=== PATIENT | female | born 1970 | race Caucasian/White ===

== ENCOUNTER → 2018-09-12 | Outpatient (CLI) | payer BC ==
--- NOTE | 2018-09-12 13:39 | MM ---
Reason for exam: screening (asymptomatic). Last mammogram was performed 2 years and 4 months ago. History: Patient history of other cancer. Took hormonal contraceptives for 27 years beginning at age 19. Physical Findings: A clinical breast exam by your physician is recommended on an annual basis and results should be correlated with mammographic findings. MG Screening Mammo w CAD Bilateral CC and MLO view(s) were taken. Prior study comparison: May 09, 2016, mammogram. April 08, 2014, mammogram. The breast tissue is extremely dense which could obscure a lesion on mammography. There are benign appearing round calcifications bilaterally. New indistinct group of calcifications right anterior central aspect. Focal asymmetry right MLO view posterior central aspect. ASSESSMENT: Incomplete: need additional imaging evaluation, BI-RAD 0 RECOMMENDATION: Special view mammogram of the right breast. If lesion persists on supplemental views, image directed ultrasound is recommended. [facility] will attempt to contact patient to return for supplemental views and ultrasound if indicated.
== END | disposition home or self-care (01) ==
LOC: RADMAMWWP 08:22
PROVIDERS: ATTEND Obstetrics & Gynecology
DX: Z12.31 Encounter for screening mammogram for malignant neoplasm of breast (principal)
CPT/HCPCS: 77067

== ENCOUNTER → 2018-09-26 | Outpatient (CLI) | payer BC ==
--- NOTE | 2018-09-26 12:19 | MM ---
Reason for exam: additional evaluation requested from abnormal screening. Last mammogram was performed less than 1 month ago. History: Patient has history of other cancer at age 38. Took hormonal contraceptives for 27 years beginning at age 19. Physical Findings: Nurse did not find any significant physical abnormalities on exam. MG 3D Work Up W/Cad RT LM, spot compression MLO, CC with magnification, and LM with magnification view(s) were taken of the right breast. Prior study comparison: September 12, 2018, bilateral MG screening mammo w CAD. May 09, 2016, mammogram. There is a 4mm group of calcifications in the right retroareolar lower inner quadrant that is new from 2016. These are heterogenous and indeterminate. Biopsy recommended. The previously seen right posterior depth asymmetry resolves on additonal views. These results were verbally communicated with the patient and result sheet given to the patient on 09/26/18. ASSESSMENT: Suspicious, BI-RAD 4 RECOMMENDATION: Stereotactic core biopsy of the right breast. Called Dr. Burns with mammographic findings. Patient request to see a surgeon at [facility]. PRELIMINARY REPORT CALLED AND FAXED TO DR. BURNS ON 09/26/18.
== END | disposition home or self-care (01) ==
LOC: RADMAMWWP 10:11
PROVIDERS: ATTEND Obstetrics & Gynecology
DX: R92.8 Other abnormal and inconclusive findings on diagnostic imaging of breast (principal)
CPT/HCPCS: 77061; 77065

== ENCOUNTER 2023-03-12 10:48 | Day surgery (SDC) | payer BC, OTHER ==
[2023-03-05 10:58] VITALS: BMI 19.0
[~2023-03-12 10:48] MED LIST: LACTATED RINGERS 1,000 ML IV SCH
[2023-03-12 11:06] VITALS: TEMP 96.6
[2023-03-12] MEDS ORDERED: PROPOFOL 10 MG/ML 20 ML VIAL IV ONE (11:14)
--- NOTE | 2023-03-12 11:19 | P.GSHP ---
History of Present Illness H&P Date: 03/12/23 Chief Complaint: Colon cancer screening 52-year-old female here for colonoscopy. She has not had 1 previously. No bowel complaints. No family history of colon cancer. Past Medical History Past Medical History: Cancer, Thyroid Disorder Additional Past Medical History / Comment(s): thyroid cancer History of Any Multi-Drug Resistant Organisms: None Reported Additional Past Surgical History / Comment(s): thyroidectomy 2009 Past Anesthesia/Blood Transfusion Reactions: No Reported Reaction Additional Past Anesthesia/Blood Transfusion Reaction / Comment(s): no blood transfusion Smoking Status: Former smoker Medications and Allergies Home Medications Medication Instructions Recorded Confirmed Type Cholecalciferol (Vitamin D3) 2,000 unit PO DAILY 03/05/23 03/05/23 History [Vitamin D3 (50 Mcg = 2000 Iu) Chew Tab] Levothyroxine Sodium [Synthroid] 112 mcg PO DAILY 03/05/23 03/05/23 History norethindrone ac-eth estradioL 1 each PO DAILY 03/05/23 03/05/23 History [Aurovela 21 1.5-30 Tablet] Allergies Allergy/AdvReac Type Severity Reaction Status Date / Time codeine Allergy Rash/Hives Verified 03/12/23 11:02 Surgical - Exam Vital Signs Temp Pulse Resp BP Pulse Ox 96.6 F L 93 16 145/87 100 03/12/23 11:04 03/12/23 11:04 03/12/23 11:04 03/12/23 11:04 03/12/23 11:04 Physical exam: General: Well-developed, well-nourished HEENT: Normocephalic, sclerae nonicteric Abdomen: Nontender, nondistended Extremities: No edema Neuro: Alert and oriented Assessment and Plan (1) Colon cancer screening Narrative/Plan: Will proceed with colonoscopy at this time. Current Visit: Yes Status: Acute Code(s): Z12.11 - ENCOUNTER FOR SCREENING FOR MALIGNANT NEOPLASM OF COLON SNOMED Code(s): 775356456
--- NOTE | 2023-03-12 11:40 | P.PCN ---
Date of Procedure: 03/12/23 Procedure(s) Performed: PREOPERATIVE DIAGNOSIS: Colon cancer screening POSTOPERATIVE DIAGNOSIS: Normal exam PROCEDURE: Colonoscopy ANESTHESIA: MAC SURGEON: Darrell Butler M.D. SPECIMENS: None ENDOSCOPIC PROCEDURE: The patient was placed on the endoscopy table in the left decubitus position. The Olympus colonoscope was inserted into the anus and passed under direct visualization to the base of the cecum. The appendiceal orifice was visualized. From that point the scope was slowly withdrawn inspecti ng all surfaces carefully. There were no neoplastic inflammatory or polypoid lesions throughout the cecum, ascending, transverse, descending, sigmoid and rectum. There was no visible diverticulosis noted. The patient's colon was very tortuous. Digital rectal examination was normal. The patient was taken to the recovery room in stable condition per anesthesia guidelines. RECOMMENDATIONS: Resume diet. Recommend follow-up screening colon evaluation be via cologuard given the significant limitations of exam given the tortuosity
[2023-03-12 11:59] VITALS: BP 147/88; PULSE 72; RESP 16
== END 2023-03-12 12:17 | disposition home or self-care (01) ==
LOC: ORWHC2ENDO 10:48
PROVIDERS: ATTEND Surgery
DX: Z12.11 Encounter for screening for malignant neoplasm of colon (principal); K56.2 Volvulus; E03.9 Hypothyroidism, unspecified; Z85.850 Personal history of malignant neoplasm of thyroid; Z90.89 Acquired absence of other organs; Z98.890 Other specified postprocedural states; Z87.891 Personal history of nicotine dependence; Z79.899 Other long term (current) drug therapy; Z79.890 Hormone replacement therapy; Z88.5 Allergy status to narcotic agent
CPT/HCPCS: 81025; 45378; J2704

== ENCOUNTER → 2023-03-14 | Outpatient (CLI) | payer BC, OTHER ==
--- NOTE | 2023-03-18 07:56 | MM ---
Reason for Exam: Screening (asymptomatic). Last mammogram was performed 4 year(s) and 6 month(s) ago. Patient History: Menarche at age 15. First Full-Term at age 23. Hormonal Contraceptives, starting at age 19 for 27 years. Risk Values: Lexi 5 year model risk: 0.9%. NCI Lifetime model risk: 8.0%. Prior Study Comparison: 04/08/2014 Screening Mammogram, Unknown. 05/09/2016 Screening Mammogram, Unknown. 09/12/2018 Bilateral Screening Mammogram, [facility]. 09/26/2018 Right Diagnostic Mammogram, [facility]. Tissue Density: The breast tissue is heterogeneously dense. This may lower the sensitivity of mammography. Findings: Analyzed By CAD. Left breast CC nodular densities at 5.1 cm the nipple middle depth slightly lateral. Right: There is no suspicious group of microcalcifications or new suspicious mass in either breast. Overall Assessment: Incomplete: need additional imaging evaluation, BI-RAD 0 Management: Diagnostic Mammogram of the left breast. Diagnostic Breast Ultrasound of the left breast. [facility] will attempt to contact patient to return for supplemental views and ultrasound if indicated. Patient should continue monthly self-breast exams. A clinical breast exam by your physician is recommended on an annual basis. This exam should not preclude additional follow-up of suspicious palpable abnormalities. Note on Lexi scores and lifetime risk: 1. A Lexi score greater than 3% is considered moderate risk. If this is the case, consider specialist referral to assess eligibility for a risk reducing agent. 2. If overall lifetime risk for the development of breast cancer is 20% or higher, the patient may qualify for future screening with alternating mammogram and breast MRI. Electronically signed and approved by: Alfonso Jaime DO
== END | disposition home or self-care (01) ==
LOC: RADMAMWWP 16:40
PROVIDERS: ATTEND Obstetrics & Gynecology
DX: Z12.31 Encounter for screening mammogram for malignant neoplasm of breast (principal)
CPT/HCPCS: 77063; 77067

== ENCOUNTER → 2023-03-29 | Outpatient (CLI) | payer BC, OTHER ==
--- NOTE | 2023-03-29 13:25 | MM ---
Reason for Exam: Additional evaluation requested from abnormal screening. Last screening mammogram was performed less than 1 month ago. Patient History: Menarche at age 15. First Full-Term at age 23. Hormonal Contraceptives, starting at age 19 for 27 years. Risk Values: Lexi 5 year model risk: 0.9%. NCI Lifetime model risk: 8.0%. Prior Study Comparison: 09/12/2018 Bilateral Screening Mammogram, [facility]. 09/26/2018 Right Diagnostic Mammogram, [facility]. 03/14/2023 Bilateral MG 3D screening mammo w/cad, [facility]. Tissue Density: Left: The breast tissue is heterogeneously dense. This may lower the sensitivity of mammography. Findings: Analyzed By CAD. Nodular densities upper outer left breast 5 cm from the nipple persist. Ultrasound is recommended. Overall Assessment: Incomplete: need additional imaging evaluation, BI-RAD 0 Management: Diagnostic Breast Ultrasound of the left breast. . Results were given to the patient verbally at the time of exam. Patient should continue monthly self-breast exams. A clinical breast exam by your physician is recommended on an annual basis. This exam should not preclude additional follow-up of suspicious palpable abnormalities. Note on Lexi scores and lifetime risk: 1. A Lexi score greater than 3% is considered moderate risk. If this is the case, consider specialist referral to assess eligibility for a risk reducing agent. 2. If overall lifetime risk for the development of breast cancer is 20% or higher, the patient may qualify for future screening with alternating mammogram and breast MRI. Electronically signed and approved by: Jonathan Nevarez M.D. Radiologis
--- NOTE | 2023-03-29 14:34 | USB ---
Reason for Exam: Additional evaluation requested from abnormal screening. Patient History: Menarche at age 15. First Full-Term at age 23. Hormonal Contraceptives, starting at age 19 for 27 years. Risk Values: Lexi 5 year model risk: 0.9%. NCI Lifetime model risk: 8.0%. Technique: Method: Targeted. Prior Study Comparison: 09/12/2018 Bilateral Screening Mammogram, [facility]. 09/26/2018 Right Diagnostic Mammogram, [facility]. 03/14/2023 Bilateral MG 3D screening mammo w/cad, [facility]. Findings: The upper outer quadrant of the left breast, the axilla of the left breast and the retroareolar of the left breast were scanned. Simple cyst at the left 12:00 position measuring 1.6 x 0.9 cm 1 cm from the nipple. Left 1:00 position demonstrates simple cyst measuring 6 x 3 mm. Left 1:00 5 cm from the nipple demonstrates a 6 x 6 x 3 mm cyst. No solid masses seen. Left axillary lymph node demonstrates thickened cortex 0.35 cm. The lymph node measures 1.3 x 0.5 cm. This could be reactive in nature and short-term follow-up is recommended in 3 months. Overall Assessment: Probably benign, BI-RAD 3 Management: Diagnostic Breast Ultrasound of the left breast in 3 months. A clinical breast exam by your physician is recommended on an annual basis and results should be correlated with mammographic findings. This exam should not preclude additional follow-up of suspicious palpable abnormalities. Results were given to the patient verbally at the time of exam. Electronically signed and approved by: Jonathan Nevarez M.D. Radiologis
== END | disposition home or self-care (01) ==
LOC: RADMAMWWP 12:57
PROVIDERS: ATTEND Obstetrics & Gynecology
DX: R92.8 Other abnormal and inconclusive findings on diagnostic imaging of breast (principal)
CPT/HCPCS: 77061; 77065

== ENCOUNTER → 2023-08-20 | Outpatient (CLI) | payer OTHER ==
[2023-08-20 19:03] LABS: Blood Urea Nitrogen 13.4 mg/dL (9.0-27.0); Calcium 9.2 mg/dL (8.7-10.3); Carbon Dioxide 22.2 mmol/L (21.6-31.8); Chloride 102 mmol/L (96-109); Glucose 90 mg/dL (70-110); Potassium 4.2 mmol/L (3.5-5.5); Sodium 138 mmol/L (135-145)
== END | disposition home or self-care (01) ==
LOC: LABWHC1 13:58
PROVIDERS: ATTEND Internal Medicine Endocrinology, Diabetes & Metabolism
DX: C73 Malignant neoplasm of thyroid gland (principal); E89.0 Postprocedural hypothyroidism; E55.9 Vitamin D deficiency, unspecified
CPT/HCPCS: 36415; 80048; 82306; 84439; 84443